=== PATIENT | male | born 1945 | race Hispanic/Latino ===

== ENCOUNTER 2022-04-02 10:51 | Observation (INO) | payer MEDICARE, OTHER ==
[~2022-04-02] VITALS: Ht 170.2 cm; Wt 110.7 kg
[2022-04-02] MEDS ORDERED: SODIUM CHLORIDE 0.9% 1000ML 1,000 ML IV STA (11:27)
[2022-04-02] MEDS ORDERED: ONDANSETRON HCL INJ 2MG/ML 2ML 2 MG/ML VIAL IV STA (11:27)
[2022-04-02] MEDS ORDERED: DIAZEPAM INJ 5 MG/ML 2 ML IV ONE (11:30)
[2022-04-02 11:53] LABS: BASOPHILS % 0.1 % (0.0-1.0); EOSINOPHILS % 0.2 % (0.0-6.0); HEMATOCRIT 52.4 % (38.2-49.6); HEMOGLOBIN 15.9 g/dL (14.0-18.0); LYMPHOCYTES # (AUTO) 2.2 (1.0-3.2); LYMPHOCYTES % 24.7 % (18.0-39.1); MEAN CORPUSCULAR HEMOGLOBIN 31.1 pg (28-32); MEAN CORPUSCULAR HGB CONC 30.3 g/dL (31-35); MEAN CORPUSCULAR VOLUME 102.3 fL (81-99); MONOCYTES # (AUTO) 0.4 (0.2-0.8); MONOCYTES % 4.5 % (4.4-11.3); NEUTROPHILS # (AUTO) 6.2 (2.1-6.9); NEUTROPHILS % 70.2 % (38.7-80.0); PLATELET COUNT 200 x10e3/uL (140-360); RED BLOOD COUNT 5.12 x10e6/uL (4.3-5.7); RED CELL DISTRIBUTION WIDTH 12.1 % (11.7-14.4)
[2022-04-02 12:13] LABS: ALANINE AMINOTRANSFERASE 23 IU/L (0-55); ALBUMIN 4.1 g/dL (3.5-5.0); ALBUMIN/GLOBULIN RATIO 1.1 (0.8-2.0); ALKALINE PHOSPHATASE 86 IU/L (40-150); ANION GAP 14.5 mmol/L (8-16); BLOOD UREA NITROGEN 16 mg/dL (7-26); BUN/CREATININE RATIO 15 (6-25); CARBON DIOXIDE 29 mmol/L (22-29); CHLORIDE 104 mmol/L (98-107); CREATINE KINASE 131 IU/L (30-200); CREATININE, SERUM 1.07 mg/dL (0.72-1.25); GLUCOSE 107 mg/dL (74-118); LIPASE 18 U/L (8-78); POTASSIUM 4.5 mmol/L (3.5-5.1); SODIUM 143 mmol/L (136-145)
[2022-04-02 12:32] LABS: CREATINE KINASE MB < 1.00 ng/mL (0-4.3)
[2022-04-02] MEDS ORDERED: IOPAMIDOL 370 MG/ML 100 ML INFUS..BTL INJ ONE (12:36)
[2022-04-02 14:21] LABS: CLARITY,URINE CLEAR (CLEAR); COLOR,URINE YELLOW (YELLOW); KETONES,URINE NEGATIVE (NEGATIVE); LEUKOCYTE ESTERASE ,URINE NEGATIVE (NEGATIVE); NITRITE,URINE NEGATIVE (NEGATIVE); PROTEIN,URINE DIPSTICK NEGATIVE (NEGATIVE)
[2022-04-02 14:26] LABS: URINE UROBILINOGEN 1 mg/dL (0.2 - 1)
[2022-04-02 14:35] LABS: BACTERIA,URINE FEW /HPF; WBC,URINE (MAN) 0-5 /HPF (0-5)
[2022-04-02] MEDS ORDERED: DICYCLOMINE HCL20 MG PO (15:02)
[2022-04-02] MEDS ORDERED: ONDANSETRON ODT4 MG PO (15:02)
[2022-04-02] MEDS ORDERED: Morphine 2mg Syringe 2 MG/ML SYR IV PRN (16:15)
[2022-04-02] MEDS ORDERED: MECLIZINE HCL 12.5 MG TAB PO ONE (16:15)
[2022-04-02] MEDS ORDERED: ONDANSETRON HCL INJ 2MG/ML 2ML 2 MG/ML VIAL IV PRN (16:15)
[2022-04-02] MEDS: SODIUM CHLORIDE 0.9% 1000ML 1,000 ML IV SCH (17:50)
[2022-04-02 21:00] VITALS: BP 142/84
[2022-04-02 21:19] VITALS: BP 142/84
[2022-04-02 21:30] VITALS: BP 142/84
[2022-04-02] MEDS ORDERED: ASPIRIN EC81 MG PO (21:51)
[2022-04-02] MEDS ORDERED: LEVOTHYROXINE50 MCG PO (21:51)
[2022-04-02] MEDS ORDERED: PRESERVISION A1 EAC2 (21:51)
[2022-04-02] MEDS ORDERED: LISINOPRIL10 MG PO (21:51)
[2022-04-03] VITALS (8 sets, daily range): BP systolic 120–149; BP diastolic 63–74
[2022-04-03] MEDS: SODIUM CHLORIDE 0.9% 1000ML 1,000 ML IV SCH ×4 (00:35→23:42)
[2022-04-03 02:53] LABS: CREATINE KINASE 130 IU/L (30-200)
[2022-04-03 05:59] LABS: BASOPHILS # (AUTO) 0.1 (0.0-0.1); BASOPHILS % 0.5 % (0.0-1.0); EOSINOPHILS # (AUTO) 0.1 (0.0-0.4); EOSINOPHILS % 0.9 % (0.0-6.0); HEMATOCRIT 41.5 % (38.2-49.6); HEMOGLOBIN 13.1 g/dL (14.0-18.0); LYMPHOCYTES # (AUTO) 4.2 (1.0-3.2); LYMPHOCYTES % 44.5 % (18.0-39.1); MEAN CORPUSCULAR HEMOGLOBIN 31.2 pg (28-32); MEAN CORPUSCULAR HGB CONC 31.6 g/dL (31-35); MEAN CORPUSCULAR VOLUME 98.8 fL (81-99); MONOCYTES # (AUTO) 0.8 (0.2-0.8); MONOCYTES % 8.7 % (4.4-11.3); NEUTROPHILS # (AUTO) 4.3 (2.1-6.9); NEUTROPHILS % 45.2 % (38.7-80.0); PLATELET COUNT 163 x10e3/uL (140-360); RED CELL DISTRIBUTION WIDTH 12.2 % (11.7-14.4)
[2022-04-03 06:13] LABS: ANION GAP 11.2 mmol/L (8-16); CALCIUM 8.4 mg/dL (8.4-10.2); CREATININE, SERUM 0.91 mg/dL (0.72-1.25); POTASSIUM 4.2 mmol/L (3.5-5.1)
[2022-04-03 08:28] LABS: CREATINE KINASE 118 IU/L (30-200)
[2022-04-03] MEDS ORDERED: DICYCLOMINE HCL 20 MG TAB PO PRN (09:45)
[2022-04-03] MEDS: ASPIRIN 81 MG ENTERIC COATED PO SCH (10:45)
[2022-04-03] MEDS: LEVOTHYROXINE SODIUM 25 MCG TABLET PO SCH (10:45)
[2022-04-03] MEDS: MECLIZINE HCL 12.5 MG TAB PO SCH ×4 (10:45→23:42)
[2022-04-03] MEDS ORDERED: ENOXAPARIN SOD INJ 40 MG/0.4 ML SYR SC SCH (17:00)
[2022-04-03 17:03] LABS: CREATINE KINASE MB 1.3 ng/mL (0-5.0)
[2022-04-04 01:02] VITALS: BP 130/58
[2022-04-04] MEDS: MECLIZINE HCL 12.5 MG TAB PO SCH (05:13)
[2022-04-04] MEDS: LEVOTHYROXINE SODIUM 25 MCG TABLET PO SCH (05:13)
[2022-04-04 05:58] VITALS: BP 150/90
[2022-04-04 07:06] LABS: CHOL/HDL RATIO 5.3 (3.9-4.7)
[2022-04-04 07:32] LABS: THYROID STIMULATING HORMONE 6.245 uIU/mL (0.350-4.940)
[2022-04-04] MEDS: ASPIRIN 81 MG ENTERIC COATED PO SCH (09:27)
[2022-04-04 09:55] VITALS: BP 173/91
[2022-04-04 10:01] VITALS: BP 173/91
[2022-04-04] MEDS: SODIUM CHLORIDE 0.9% 1000ML 1,000 ML IV SCH (10:12)
== END 2022-04-04 12:13 | disposition home or self-care (01) ==
LOC: ER 11:02 → ERHOLD 16:23 → MED/SURG3 21:10
PROVIDERS: ADMIT Internal Medicine; ATTEND Internal Medicine
DX: H81.10 Benign paroxysmal vertigo, unspecified ear (principal); R11.2 Nausea with vomiting, unspecified; Z20.822 Contact with and (suspected) exposure to COVID-19; I10 Essential (primary) hypertension; E03.9 Hypothyroidism, unspecified; E78.2 Mixed hyperlipidemia
CPT/HCPCS: 36415 ×3; 70450; 70551; 71045 ×2; 74177; 80048; 80053; 80061; 81001; 82550 ×2; 82553 ×2; 83690; 84443; 84484 ×2; 85025 ×2; 93005 ×2; 94799; 96360; 96361; 97116; 97161; 99284; G0378 ×3; J1650; J2405; J3360; J7030 ×3; J8597 ×3; Q9967; U0002